=== PATIENT | male | born 1970 | race Caucasian/White ===

== ENCOUNTER 2021-04-08 21:07 | Emergency (ER) | payer BC, SELFPAY ==
[2021-04-08 21:12] VITALS: BP 160/80; PULSE 72; RESP 18; TEMP 36.4; O2SAT 95
--- NOTE | 2021-04-08 21:40 | W.ED.GENAD ---
Discharge Plan Disposition Patient Disposition: HOME Condition: Stable Discharge Details Clinical Impression: Cellulitis of right leg Primary Care Provider: Faustino Mccann ED Provider: Neville Falk Home Meds and New Rx's Prescriptions: New sulfamethoxazole-trimethoprim [Bactrim DS] 800-160 mg tablet 1 tab PO BID Qty: 20 RF: 0 cephalexin 500 mg capsule 500 mg PO QID 10 Days Qty: 40 RF: 0 Continued prednisone 20 MG tablet 20 mg PO DAILY Qty: 5 RF: 0 tramadol [Ultram] 50 MG tablet 50 mg PO QID PRN (Reason: Pain) Qty: 30 RF: 0 indomethacin 25 MG capsule 25 mg PO DIRECTED PRN (Reason: GOUT) Qty: 50 RF: 0 losartan 50 MG tablet 50 mg PO DAILY RF: 0 Discharge Instructions Instructions: Cellulitis (ED) Additional Instructions: Keflex and Bactrim as directed. Rest, elevate, warm compresses every 2 hours for 20 minutes. Tetanus status was updated today. [id number] Tylenol and/or Motrin as directed for discomfort. Please watch for new or worsening symptoms and return to the ER for any concerns. I would reach out to your primary care provider tomorrow to discuss wound reevaluation in the next few days. Discharge Data Discharge Date/Time-TO BE ENTERED AT DEPARTURE: 04/08/21 21:40 Medical Decision Making 50-year-old male, immunocompetent, presents for right lower leg infection that he sustained on Tuesday while putting aluminum dock in a pond. Clinically he has localized cellulitis. No evidence of systemic infection. Will update tetanus initiate antibiotic therapy. Will place on Keflex and Bactrim. First dose to be given here. Standard discharge and return precautions given. Patient has no additional questions or concerns and is agreeable to discharge at this time. Medical Records Medical records reviewed: Yes I reviewed the patient's medical records. HPI General Mode of arrival: ambulatory. Date/Time Provider Initiated Documentation: 04/08/21 21:08. Limitations to Documentation: no limitations. Information obtained by: patient. HPI Narrative: Is a 50-year-old male presenting to the ER, past nuchal history of hypertension, presenting with a chief complaint of right lower leg infection. Patient states that on Tuesday he was attempting to put an aluminum dock in a pond and scraped his right mijares. He had mild pain at the time however since that time he has noticed the area has become hot, red, swollen, reports his pain is a 3 or 4 out of 10 now. He denies fever, any other injury, numbness, tingling, weakness, drainage from the wound. Tetanus status is not up-to-date. Has not taken any medications for his symptoms. No additional concerns or complaints. Related Data Home Medications Medication Instructions Recorded Confirmed indomethacin 25 mg PO DIRECTED PRN #50 cap 05/26/15 losartan 50 mg PO DAILY 05/26/15 05/26/15 prednisone 20 mg PO DAILY #5 tab 05/26/15 tramadol [Ultram] 50 mg PO QID PRN #30 tablet 05/26/15 cephalexin 500 mg PO QID 10 Days #40 cap 04/08/21 sulfamethoxazole-trimethoprim 1 tab PO BID #20 tab 04/08/21 [Bactrim DS] Previous Rx's Medication Instructions Recorded indomethacin 25 mg PO DIRECTED PRN #50 cap 05/26/15 prednisone 20 mg PO DAILY #5 tab 05/26/15 tramadol [Ultram] 50 mg PO QID PRN #30 tablet 05/26/15 cephalexin 500 mg PO QID 10 Days #40 cap 04/08/21 sulfamethoxazole-trimethoprim 1 tab PO BID #20 tab 04/08/21 [Bactrim DS] Allergies Allergy/AdvReac Type Severity Reaction Status Date / Time No Known Allergies Allergy Unverified 05/26/15 08:11 General Stated Complaint: Laceration NEEL: 4 Review of Systems Constitutional Constitutional: Denies fever(s) and Denies weakness Musculoskeletal Musculoskeletal: Denies numbness and Denies tingling Integumentary/Breasts Skin/Breast: Reports erythema Neurologic Neurologic: Denies numbness, Denies tingling and Denies weakness [facility] Social History Smoking/Tobacco Use Status: Former Tobacco Use Smoking risk assessment performed?: Yes Alcohol Intake: never Drug use: Never Do you feel safe at home: Yes Do you feel safe in your relationship?: Yes Exam Const General: cooperative, healthy appearing, comfortable and no acute distress Orientation: alert and awake [facility] Head: normal to inspection, normocephalic and atraumatic Eyes General: appearance normal, both eyes and all related structures Conjunctivae: conjunctivae normal Neck Neck: normal visual inspection, trachea midline and supple Resp Effort & Inspection: normal respiratory effort and able to speak in complete sentences Cardio Rate: regular rate Rhythm: regular rhythm Skin General skin exam: erythema Neuro General: patient alert, patient awake, moves all extremities and no focal motor deficits Cognition: normal cognition Speech: speech normal Gait: normal gait Sensory Exam: no sensory deficits noted Extrem Upper/lower leg/hip images: 1. Approximately 4 cm central vertical scabbing abrasion-wound. Surrounding the wound in all directions approximately 2 cm of macular erythema, warmth, tenderness. There is no drainage. There is no induration or pointing abscess. Normal dorsalis pedal pulse. There is no lymphangitic streaking. Neuro, vascular, tendon intact. No obvious foreign body. Psych Appearance: grossly normal Mental Status: mental status grossly normal Course Vital Signs Vital signs: Vital Signs Temperature 36.4 C L 04/08/21 21:12 Pulse 72 04/08/21 21:12 Respiratory Rate 18 04/08/21 21:12 Blood Pressure 160/80 H 04/08/21 21:12 Pulse Oximetry 95 04/08/21 21:12 Temperature 36.4 C L 04/08/21 21:12 Temperature Source Temporal Artery Scan 04/08/21 21:12 Pulse 72 04/08/21 21:12 Respiratory Rate 18 04/08/21 21:12 Respiratory Effort Non-Labored 04/08/21 21:14 Blood Pressure 160/80 H 04/08/21 21:12 Blood Pressure Position Sitting 04/08/21 21:12 Pulse Oximetry 95 04/08/21 21:12 Oxygen Delivery Method Room Air 04/08/21 21:12 Oxygen Flow Rate 0 04/08/21 21:12 Pain Level 2 04/08/21 21:12
[2021-04-08] MEDS: Cephalexin 500 MG CAP PO (21:47)
[2021-04-08] MEDS: Sulfameth/Trimeth DS TAB 1 TAB PO (21:49)
== END 2021-04-08 21:40 | disposition home or self-care (01) ==
PROVIDERS: Emergency Provider Physician Assistant; PCP Internal Medicine
DX: L03.115 Cellulitis of right lower limb (principal)
CPT/HCPCS: 99283

== ENCOUNTER 2021-12-08 17:20 | Emergency (ER) | payer BC, SELFPAY ==
[2021-12-08 17:31] VITALS: BP 149/91; PULSE 62; RESP 14; TEMP 36.1; O2SAT 97
--- NOTE | 2021-12-08 17:45 | DI.RAD_ITS ---
Exam(s) XR LUMBAR SPINE COMPLETE EXAM: XR LUMBAR SPINE COMPLETE CLINICAL HISTORY: Fall, R sided pain. TECHNIQUE: 2D digital imaging was performed. COMPARISON: No exams were available for comparison FINDINGS: No evidence of fracture. There is degenerative anterolisthesis of L 4 upon L5, approximately 5 shelia meters. No disc space narrowing at this level nor elsewhere in the lumbar spine. No scoliosis. Deg enerative arthropathy noted at the lower 2 levels. Sacroiliac joints unremarkable. Advanced degener ative changes incidentally noted in right hip. IMPRESSION: Degenerative anterolisthesis of L4 upon L5. Right hip osteoarthritic changes DATA REPOSITORY: RADIATION DOSE DELIVERED:
[2021-12-08] MEDS: Ketorolac 60 MG/2 ML VIAL IM (18:03)
--- NOTE | 2021-12-08 18:48 | ED.GENADUL_ITS ---
Discharge Plan Disposition Patient Disposition: HOME Condition: Improving Discharge Details Clinical Impression: Back pain Primary Care Provider: Faustino Mccann ED Provider: Neville Falk Home Meds and New Rx's Prescriptions: New methocarbamol 750 mg tablet 750 mg PO TID PRNQty: 10 RF: 0 Continued colchicine [Colcrys] 0.6 mg tablet RF: 0 Discharge Instructions Instructions: Back Pain (ED) Additional Instructions: X-ray does not reveal any obvious emergent process. Gentle stretching as tolerated. Cool and/or warm compresses every 2 hours for 20 minutes. Robaxin as directed, this may cause drowsiness. [id number] acetaminophen and NSAIDs as directed for discomfort. Please watch for new or worsening symptoms and return to the ER for any concerns. I will provide you a referral to physical therapy. Lastly, I do recommend you reach out to your primary care provider or Workmen's Compensation provider if your work requires you to see one for outpatient reevaluation. Stand Alone Forms: Physical Therapy Referral Medical Decision Making This is a 51-year-old gentleman who reports that he had a mechanical slip and fall on ice on Tuesday while at work landing directly onto his back. He denies striking his head or any other injury. At that time he states the pain was moderate to severe and since then he has been taking ibuprofen it is slowly been getting better. He reports at times when he bends over and tries to stand up he gets a sharp pain in his back up to 8 out of 10 otherwise he has an aching 4 out of 10. He denies any radiation of pain. He denies any numbness, tingling, weakness in extremities. Denies any change in bowel or bladder function. Clinically he appears well, nontoxic. He reports that he occasionally feels a knot in his back. He is neurologically intact. We discussed limitations of x-ray and if he is truly concerned of a disc MRI would be the gold standard. He understands that we cannot obtain an MRI emergently. He is agreeable to obtaining an x-ray, IM Toradol, and I will provide a prescription of a muscle relaxer. x-rays is unremarkable for any obvious emergent process. Discussed x-ray with patient. He is relieved. Report mild improvement with the IM Toradol although it was given just a short time ago. He has no additional questions or concerns and is comfortable discharge. Remains neurologically intact. No evidence of cauda equina. Strict discharge and return precautions were provided This documentation was generated using [employer] dictation system, please disregard any oddities of phrase or misspellings. Medical Records Medical records reviewed: Yes I reviewed the patient's medical records. Imaging Data Radiologic Study: Attestation: I personally reviewed and interpreted this imaging study as follows: Imaging: X-Ray Radiologist's impression: PROCEDURE INFORMATION: Exam: XR Lumbosacral Spine Exam date and time: 12/08/2021 17:57 Age: 51 years old Clinical indication: Injury or trauma; Blunt trauma (contusions or hematomas); Injury date: 12/08/21; Injury details: Fall on the ice, R sided pain TECHNIQUE: Imaging protocol: XR of the lumbosacral spine. Views: 4 or 5 views. COMPARISON: No relevant prior studies available. FINDINGS: Bones/joints: Normal variant anatomy at T12. No acute fracture or subluxation. Mild degenerative appearing anterolisthesis of L4 over L5. Facet hypertrophy distally. Soft tissues: Unremarkable. IMPRESSION: 1. No acute bony pathology. 2. Mild degenerative appearing anterolisthesis of L4 over L5. HPI General Mode of arrival: ambulatory . Date/Time Provider Initiated Documentation: 12/08/21 17:21 . Limitations to Documentation: no limitations . Information obtained by: patient . History of Present Illness 51 year old M presents to the emergency department with the chief complaint of back pain, described as moderate and severe (at times, 8/10), with intensity rated at 4. Quality is described as aching, and is localized to the back and right. Patient reports no radiation. Patient started experiencing this day(s) (4) and it has been intermittent. No relieving factors improve symptom(s), Movement worsens symptoms . Patient notes no other symptoms.. Patient did receive the following treatments prior to arrival, NSAID Related Data Home Medications Medication Instructions Recorded Confirmed colchicine [Colcrys] mg 12/08/21 12/08/21 methocarbamol 750 mg PO TID PRN #10 tab 12/08/21 Previous Rx's Medication Instructions Recorded methocarbamol 750 mg PO TID PRN #10 tab 12/08/21 Allergies Allergy/AdvReac Type Severity Reaction Status Date / Time No Known Allergies Allergy Unverified 12/08/21 17:36 General Stated Complaint: Nk/Back Pain NEEL: 3 Review of Systems Constitutional Constitutional: Denies fever(s), Denies headache(s) and Denies weakness ENT Ears, Nose, Mouth, and Throat: Denies headache(s) and Denies neck pain Cardiovascular Cardiovascular: Denies chest pain and Denies dyspnea Respiratory Respiratory: Denies cough and Denies dyspnea Gastrointestinal Gastrointestinal: Denies abdominal pain, Denies nausea and Denies vomiting Genitourinary Genitourinary: Denies hematuria and Denies dysuria Musculoskeletal Musculoskeletal: Reports back pain, Denies neck pain, Denies numbness and Denies tingling Integumentary/Breasts Skin/Breast: Denies rash Neurologic Neurologic: Denies headache(s), Denies numbness, Denies tingling and Denies weakness PFSH All Active Problems Cellulitis of right leg (Acute) Back pain (Acute) Social History Smoking/Tobacco Use Status: Former Tobacco Use Smoking risk assessment performed?: Yes Alcohol Intake: never Drug use: Never Substance use type: does not use Do you feel safe at home: Yes Do you feel safe in your relationship?: Yes Exam Const General: cooperative, healthy appearing, comfortable and no acute distress Orientation: alert and awake [place] Head: normal to inspection, normocephalic and atraumatic Eyes Conjunctivae: conjunctivae normal Neck Neck: normal visual inspection, trachea midline and supple Resp Effort & Inspection: normal respiratory effort and able to speak in complete sentences Auscultation: clear to auscultation bilaterally Cardio Rate: regular rate Rhythm: regular rhythm GI Palpation: soft and nontender Back/Spine/Pelvis Back: no CVA tenderness and back tenderness Back/spine/pelvis image: 1. Diffuse mild discomfort. Skin is intact. No bony midline point tenderness, erythema, ecchymosis or spasm Skin General skin exam: no rashes or lesions noted Neuro General: patient alert, patient awake, patient oriented x3, moves all extre mities and no focal motor deficits Cognition: normal cognition Speech: speech normal Motor: muscle tone normal throughout, strength 5/5 throughout and other Sensory Exam: no sensory deficits noted Coordination: Does not sway with eyes open Extrem General: normal to inspection, full ROM and capillary refill normal Psych Appearance: grossly normal Mental Status: mental status grossly normal Course Vital Signs Vital signs: Vital Signs Temperature 36.1 C L 12/08/21 17:31 Pulse 62 12/08/21 17:31 Respiratory Rate 14 12/08/21 17:31 Blood Pressure 149/91 H 12/08/21 17:31 Pulse Oximetry 97 12/08/21 17:31 Temperature 36.1 C L 12/08/21 17:31 Temperature Source Temporal Artery Scan 12/08/21 17:31 Pulse 62 12/08/21 17:31 Respiratory Rate 14 12/08/21 17:31 Respiratory Effort Non-Labored 12/08/21 17:38 Blood Pressure 149/91 H 12/08/21 17:31 Blood Pressure Position Sitting 12/08/21 17:31 Pulse Oximetry 97 12/08/21 17:31 Oxygen Delivery Method Room Air 12/08/21 17:31 Oxygen Flow Rate 0 12/08/21 17:31 Pain Level 4 12/08/21 17:31
--- NOTE | 2021-12-08 18:54 | DI.VRAD_ITS ---
PROCEDURE INFORMATION: Exam: XR Lumbosacral Spine Exam date and time: 12/08/2021 17:57 Age: 51 years old Clinical indication: Injury or trauma; Blunt trauma (contusions or hematomas); Injury date: 12/08/21; Injury details: Fall on the ice, R sided pain TECHNIQUE: Imaging protocol: XR of the lumbosacral spine. Views: 4 or 5 views. COMPARISON: No relevant prior studies available. FINDINGS: Bones/joints: Normal variant anatomy at T12. No acute fracture or subluxation. Mild degenerative appearing anterolisthesis of L4 over L5. Facet hypertrophy distally. Soft tissues: Unremarkable. IMPRESSION: 1. No acute bony pathology. 2. Mild degenerative appearing anterolisthesis of L4 over L5. Dictated and Authenticated by: Waleska Silvestre MD. Ordering:EDUIN Lozada MD
== END 2021-12-08 19:16 | disposition home or self-care (01) ==
PROVIDERS: Emergency Provider Physician Assistant; PCP Internal Medicine
DX: M54.9 Dorsalgia, unspecified (principal); W00.0XXA Fall on same level due to ice and snow, initial encounter; Y99.0 Civilian activity done for income or pay
CPT/HCPCS: 96372; 99284; 72110; 99283; J1885

== ENCOUNTER 2022-03-03 23:03 | Outpatient (REF) | payer BC, SELFPAY ==
[2022-03-05 11:10] LABS: COVID-19 RT-PCR UVMMC Result Negative (Negative)
== END 2022-03-03 23:04 | disposition home or self-care (01) ==
LOC: LBN 23:03
PROVIDERS: PCP Internal Medicine; Visit Provider Physician Assistant Medical
DX: Z20.822 Contact with and (suspected) exposure to COVID-19 (principal); R05.8 Other specified cough
CPT/HCPCS: U0003

== ENCOUNTER 2023-06-14 13:00 | Outpatient (CLI) | payer BC, SELFPAY ==
[2023-06-14 09:54] LABS: Abs Immature Grans 0.03 10^3/uL (0.0-0.06); Absolute Basophil Count 0.06 10^3/uL (0.0-0.2); Absolute Eosinophil Count 0.14 10^3/uL (0.0-0.7); Absolute Lymphocyte Count 2.76 10^3/uL (1.2-3.4); Absolute Monocyte Count 0.72 10^3/uL (0.1-0.8); Absolute Neutrophil Count 4.38 10^3/uL (1.2-6.7); Basophils % 0.7; Eosinophils % 1.7; HCT 47.6 % (40.0-50.0); HGB 16.3 g/dL (13.5-17.5); Immature Grans % 0.4; Lymphocytes % 34.1; MCH 29.4 pg (27.0-33.0); MCHC 34.2 % (32.0-36.0); MCV 86 fL (80-95); MPV 10.7 fL (8.0-11.0); Monocytes % 8.9; Neutrophils % 54.2; Platelet Count 174 10^3/uL (130-400); RBC 5.55 10^6/uL (4.36-5.78); RDW 13.2 % (11.8-14.1); RDW-SD 41.2 fL; WBC 8.09 10^3/uL (4.4-10.8)
[2023-06-14 10:35] LABS: Iron 86 ug/dL (65-175); Total Iron Binding Capacity 303 ug/dL (250-450); Transferrin Sat 28 % (20-55)
[2023-06-14 10:43] LABS: Ferritin 387 ng/mL (26-388); TSH (W/Ref FT4) 1.73 uIU/mL (0.36-3.74)
== END 2023-06-14 13:01 | disposition home or self-care (01) ==
LOC: LBO 13:00
PROVIDERS: PCP Family Medicine; Visit Provider Family Medicine
DX: E83.119 Hemochromatosis, unspecified (principal); R53.83 Other fatigue
CPT/HCPCS: 36415; 82728; 83540; 83550; 84443; 85025

== ENCOUNTER → 2023-06-16 12:37 | Outpatient (CLI) | payer BC, SELFPAY ==
--- NOTE | 2023-06-16 09:00 | DI.RAD_ITS ---
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 TECHNIQUE: 2D digital imaging was performed. COMPARISON: CR XR FOOT LT COMPLETE from 06/16/2023 FINDINGS: 3 views No evidence of acute fracture or diastasis of the Lisfranc joint. There are mild degenerative change s in the metatarsophalangeal joint of the great toe, less than is evident at the same articulation in the opposite-left foot. No osseous lesions nor erosions evident. There is a moderate size inferior calcaneal spur without evidence of adjacent calcification in the plantar fascia. Also calcification s noted at the insertional aspect of the Achilles tendon on the posterior calcaneus. On the lateral view there are calcific densities noted anterior to the tibial plafond and. There zurdo ears to be some degenerative change in the anterior aspect of the tibiotalar joint in addition to the se calcifications which are possibly intra-articular within the ankle joint. Similar findings are no t seen on the opposite-left side. IMPRESSION: Anterior tibiotalar joint findings as described above. Mild degenerative changes in the metatarsophalangeal joint of the great toe. Moderate size inferior calcaneal spur. DATA REPOSITORY: RADIATION DOSE DELIVERED:
--- NOTE | 2023-06-16 09:00 | DI.RAD_ITS ---
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 TECHNIQUE: 2D digital imaging was performed. COMPARISON: CR XR FOOT RT COMPLETE from 06/16/2023 FINDINGS: 3 views No evidence of fracture or diastasis of the Lisfranc joint. There are moderate degenerative changes in the great toe metatarsophalangeal joint. No osseous lesions. No erosions. Posteriorly there is a moderate size inferior calcaneal spur without calcification plantar fascia. Also posteriorly is a prominent enthesophyte at the insertion of the Achilles tendon. IMPRESSION: Degenerative changes in the metatarsophalangeal joint of the great toe. DATA REPOSITORY: RADIATION DOSE DELIVERED:
== END ==
PROVIDERS: PCP Family Medicine; Visit Provider Podiatrist
DX: M19.071 Primary osteoarthritis, right ankle and foot; M77.31 Calcaneal spur, right foot; M19.072 Primary osteoarthritis, left ankle and foot
CPT/HCPCS: 73630

== ENCOUNTER → 2023-07-07 16:53 | Outpatient (CLI) | payer BC, SELFPAY ==
--- NOTE | 2023-07-07 | DI.RAD_ITS ---
Exam(s) XR FOOT RT COMPLETE EXAM: XR FOOT RT COMPLETE CLINICAL HISTORY: WORSENING FOOT PAIN HAGLUNDS DEFORMITY M79.673 M92.60. TECHNIQUE: 2D digital imaging was performed. COMPARISON: CR XR FOOT RT COMPLETE from 06/16/2023 CR XR FOOT LT COMPLETE from 07/07/2023 FINDINGS: 3 views No evidence of fracture or diastasis of the Lisfranc joint. Moderate degenerative changes again note d in the great toe metatarsophalangeal joint. Also shallow bony excrescence off the outer aspect of the navicular tuberosity on the medial aspect of the foot, this being the insertion site level of tib ialis posterior tendon. Large inferior calcaneal spur is again noted as is enthesophyte posteriorly at the insertional aspect of the Achilles on the posterior calcaneus. Previously described degenerative changes in the anteri or aspect of the tibiotalar joint and loose bodies are again noted at this level. These are probably within the anterior aspect of joint space. IMPRESSION: Findings in the anterior aspect of the tibiotalar joint again noted, as described above. Recommend additional ankle images to determine if there is osteochondral defect in the talar dome. Keshawn hollis MRI. DATA REPOSITORY: RADIATION DOSE DELIVERED:
--- NOTE | 2023-07-07 | DI.RAD_ITS ---
Exam(s) XR FOOT LT COMPLETE EXAM: XR FOOT LT COMPLETE CLINICAL HISTORY: WORSENING FOOT PAIN HAGLUNDS DEFORMITY M79.673 M92.60. TECHNIQUE: 2D digital imaging was performed. COMPARISON: CR XR FOOT LT COMPLETE from 06/16/2023 FINDINGS: 3 views No evidence of acute fracture or diastasis of the Lisfranc joint. Some degenerative change in the me tatarsophalangeal joint of the great toe is again noted, unchanged. No erosions evident at this leve l nor elsewhere in the foot. Moderate size inferior calcaneal spur again noted. No calcification in the plantar fascia seen. No pes planus. Prominent enthesophyte again noted at the insertion site o f the Achilles on the posterior calcaneus. IMPRESSION: Degenerative changes in the great toe metatarsophalangeal joint as described above. Prominent enthesophyte and posterior aspect the calcaneus again noted. Slight widening of the Achill es tendon noted at this level. Correlation any clinical signs of Dennis syndrome recommended DATA REPOSITORY: RADIATION DOSE DELIVERED:
== END ==
PROVIDERS: PCP Family Medicine; Visit Provider Podiatrist
DX: M19.071 Primary osteoarthritis, right ankle and foot (principal); M19.072 Primary osteoarthritis, left ankle and foot
CPT/HCPCS: 73630